=== PATIENT | female | born 1990 | race Caucasian/White ===

== ENCOUNTER 2018-07-18 12:38 | Emergency (ER) | payer OTHER, MEDICAID ==
[2018-07-18 12:52] VITALS: BP 111/71
--- NOTE | 2018-07-18 14:09 | UC ---
Complaint Female HPI - HPI Summary HPI Summary: 27 yo F requesting STD check. Patient has no symptoms and has not had recent unprotected sex, however is about to initiate sexual relationship w new partner and would like to be sure she has no STIs. Was recently treated for yeast infection with diflucan x3 (took every other day). She denies itchy or discharge currently. no currently sexually active - History Of Current Complaint Chief Complaint: UCSTDScreening Stated Complaint: STD TESTING Time Seen by Provider: 07/18/18 13:21 Hx Obtained From: Patient Hx Last Menstrual Period: 06/29/18 Pain Intensity: 0 - Allergies/Home Medications Allergies/Adverse Reactions: Allergies Allergy/AdvReac Type Severity Reaction Status Date / Time No Known Allergies Allergy Verified 07/18/18 12:52 Home Medications: Home Medications ZyrTEC 10 MG TAB* 10 mg PO DAILY 07/18/18 [History Confirmed 07/18/18] PMH/Surg Hx/FS Hx/Imm Hx Previously Healthy: Yes - Surgical History Surgical History: Yes Surgery Procedure, Year, and Place: wisdom teeth - Social History Alcohol Use: Occasionally Substance Use Type: Marijuana Smoking Status (MU): Never Smoked Tobacco Review of Systems All Other Systems Reviewed And Are Negative: Yes Physical Exam Triage Information Reviewed: Yes Appearance: Well-Appearing, No Pain Distress, Well-Nourished Vital Signs: Initial Vital Signs Temp 97.9 F 07/18/18 12:49 Pulse 72 07/18/18 12:49 Resp 18 07/18/18 12:49 BP 111/71 07/18/18 12:49 Pulse Ox 100 07/18/18 12:49 Vital Signs Reviewed: Yes Eyes: Positive: Conjunctiva Clear ENT: Positive: Hearing grossly normal Pelvic Exam: Positive: External Exam Normal, Other - thick clumps of yellow/ white intravaginal discharge Neurological: Positive: Alert, Muscle Tone Normal Skin Exam: Normal Complaint Female Dx - Differential Dx/Diagnosis Differential Diagnosis/HQI/PQRI: Other - myra, BV, trich, GC/chlamyd Provider Diagnoses: vaginal candidiasis Discharge - Sign-Out/Discharge Documenting (check all that apply): Patient Departure All imaging exams completed and their final reports reviewed: No Studies - Discharge Plan Condition: Stable Disposition: HOME Patient Education Materials: Yeast Infection (ED) Referrals: No Primary Care Phys,NOPCP [Primary Care Provider] - - Billing Disposition and Condition Condition: STABLE Disposition: Home
--- NOTE | 2018-07-19 16:37 | UC ---
- Progress Note Progress Note: Patient had affirm testing with Urgent care 07/18/18--returns + for Gardnerella and Tish---Patient is currently being treated with Lotrimin---will add Flagyl 500 mg po bid for 7 days please notify patient and remind her no alcohol while taking flagyl and for 2 days after Discharge - Sign-Out/Discharge Documenting (check all that apply): Post-Discharge Follow Up All imaging exams completed and their final reports reviewed: No Studies - Discharge Plan Condition: Stable Disposition: HOME Prescriptions: Clotrimazole 1% VAGINAL CREAM* [Gyne-Lotrimin 1% VAGINAL CREAM*] 1 applic VAGINAL BEDTIME #1 tube metroNIDAZOLE [Flagyl] 500 mg PO BID #14 tablet Patient Education Materials: Yeast Infection (ED) Referrals: No Primary Care Phys,NOPCP [Primary Care Provider] - - Billing Disposition and Condition Condition: STABLE Disposition: Home
== END 2018-07-18 14:31 | disposition home or self-care (01) ==
LOC: UCEAST 12:38
DX: B37.3 Candidiasis of vulva and vagina (principal); B96.89 Other specified bacterial agents as the cause of diseases classified elsewhere; Z72.51 High risk heterosexual behavior
CPT/HCPCS: 36415; 81003; 84702; 86703; 87480; 87491; 87510; 87591; 87661; 99202; G0463